=== PATIENT | female | born 1945 | race Caucasian/White ===

== ENCOUNTER → 2019-11-15 | Outpatient (CLI) | payer MEDICARE ==
[~2019-11-15] MED LIST: AMLO5TAB6 PO; COLLAGEN PEPTIDE PO; NAPR220C14 PO; PROBCAP14 PO; RA T500C2 PO; RAMI1CAP24 PO; VITA500079 PO
--- NOTE | 2019-11-15 22:24 | ECGEPIP ---
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 Electronically Signed on 11-15-2019 22:23:51 EST by Fransico Rich
== END ==
LOC: M EKG 09:42
PROVIDERS: ATTEND Internal Medicine
DX: Z01.810 Encounter for preprocedural cardiovascular examination (principal); R94.31 Abnormal electrocardiogram [ECG] [EKG]

== ENCOUNTER 2019-11-20 08:29 | Day surgery (SDC) | payer MEDICARE ==
[~2019-11-20] VITALS: Ht 157.5 cm; Wt 77.9 kg
[~2019-11-20 08:29] MED LIST changes: +LR 1,000 ML IV ONE; +ceFAZolin SOD 1 GM in D5W MINI-BAG PLUS 50 ML IV ONE
[2019-11-20] MEDS ORDERED: BUPIVACAINE HCL 0.25% 10 ML VIAL As Ordered ONE (09:51)
[2019-11-20] MEDS ORDERED: BUPIVACAINE LIPOSOME/PF 1.3% 20ML VIAL (13.3MG/ML)(EXPAREL)(C9290 PER1MG) As Ordered ONE (09:51)
[2019-11-20] MEDS ORDERED: BUPIVACAINE/EPIN 0.25% 30 ML VIAL As Ordered ONE (09:52)
[2019-11-20] MEDS ORDERED: ROCURONIUM BROMIDE 50 MG/5 ML VIAL As Ordered ONE (10:21)
[2019-11-20] MEDS ORDERED: propofoL 200 MG/20 ML VIAL As Ordered ONE (10:21)
[2019-11-20] MEDS ORDERED: dexameTHASONE 4 MG/ML 1ML VIAL (J1100) As Ordered ONE (10:21)
[2019-11-20] MEDS ORDERED: fentaNYL 250 MCG/5 ML INJECTION (J3010) As Ordered ONE (10:21)
[2019-11-20] MEDS ORDERED: SUGAMMADEX SODIUM 500 MG/5 ML VIAL (BRIDION) As Ordered ONE (10:21)
[2019-11-20] MEDS ORDERED: MIDAZOLAM INJ 2 MG/2 ML VIAL (J2250) As Ordered ONE (10:21)
[2019-11-20] MEDS ORDERED: ONDANSETRON 4MG/2ML VIAL (J2405) As Ordered ONE (10:21)
[2019-11-20] MEDS ORDERED: METOCLOPRAMIDE INJ 10MG/2ML VIAL (J2765) As Ordered ONE (10:21)
[2019-11-20] MEDS ORDERED: LIDOCAINE 2% INJ 100 MG/5 ML SDV (FOR ANES.) As Ordered ONE (10:21)
[2019-11-20] MEDS ORDERED: ACETAMINOPHEN 1000MG 100ML IV BTL (OFIRMEV) (J0131 PER 10MG) As Ordered ONE (10:46)
[2019-11-20] MEDS ORDERED: LACRILUBE (AKWA TEARS) OPHTH OINT 3.5 GM As Ordered ONE (11:09)
[2019-11-20] MEDS ORDERED: fentaNYL 100 MCG/2 ML INJECTION (J3010) IV PRN (11:30)
[2019-11-20] MEDS ORDERED: ONDANSETRON 4MG/2ML VIAL (J2405) IV PRN (11:30)
[2019-11-20] MEDS ORDERED: NORCO, ANEXSIA 5/325MG TABLET (HYDROcodone/ACETAMINOPHEN) PO PRN (11:30)
[2019-11-20] MEDS ORDERED: oxyCODONE 5MG TAB PO PRN (11:30)
[2019-11-20] MEDS ORDERED: LR 1,000 ML IV SCH ×2 (11:30)
[2019-11-20 13:24] VITALS: BP 168/80
--- NOTE | 2019-11-26 06:26 | RO ---
DATE OF PROCEDURE: 11/20/2019 PREOPERATIVE DIAGNOSIS: Incisional hernia at the umbilicus. POSTOPERATIVE DIAGNOSIS: Incisional hernia at the umbilicus. PROCEDURE: Incisional hernia repair with mesh (ventral patch). SURGEON: Dr. Jose Lau DAYLIGHT DRILLER: ANESTHESIA: General endotracheal anesthesia. ESTIMATED BLOOD LOSS: Minimal. FLUIDS: Crystalloid. BRIEF PROCEDURE SUMMARY: The patient was brought to the operating room and was given general anesthesia. After adequate anesthesia and preoperative antibiotics were given, the patient was prepped and draped in the usual sterile fashion. Next, a supraumbilical linear incision was made with skin knife. Blunt dissection was carried down to the hernia sac and the hernia was dissected to the level of the fascia. This was a relatively large fascial defect, was almost 2 cm in size, and it was dissected circumferentially. The hernia sac was transected at the level of fascia and then given that the fascia was somewhat attenuated superiorly and inferiorly; however, I did not appreciate any other additional hernias present and specifically at the base the umbilicus I did not appreciate any hernias present, thus a ventral patch was placed in the peritoneum, brought back up against the peritoneum and circumferentially I could palpate the mesh up against the wall quite nicely. The fascial defect was closed with three [id number] #0 Ethilon sutures. Exparel was placed in the fascia and the subcutaneous tissue was closed with #2-0 Vicryl, #3-0 Vicryl was used to approximate the dermis, and #4-0 Vicryl was used to approximate the skin. Steri-Strips and a dry sterile dressing was applied. The patient was awakened, extubated and brought to the recovery room awake, alert and hemodynamically stable.
== END 2019-11-20 13:20 | disposition home or self-care (01) ==
LOC: M SDC 08:29
PROVIDERS: ATTEND Surgery
DX: K42.9 Umbilical hernia without obstruction or gangrene (principal); I10 Essential (primary) hypertension; Z87.891 Personal history of nicotine dependence; Z79.899 Other long term (current) drug therapy
CPT/HCPCS: 49560; 49568; 88302; C1781; C9290; J0131; J0690; J1100; J2250; J2405; J2765; J3010